=== PATIENT | male | born 1960 | race African-American/Black ===

== ENCOUNTER 2017-07-14 06:14 | Day surgery (SDC) | payer BC ==
[~2017-07-14] VITALS: Ht 165.1 cm; Wt 71.8 kg
[2017-07-14 06:37] VITALS: BP 124/102; PULSE 80; TEMP 97.6
[2017-07-14] MEDS ORDERED: ASPIRIN 32325 MG/TAB PO (06:41)
[2017-07-14] MEDS ORDERED: NATURAL IRON65 MG PO (06:42)
[2017-07-14] MEDS ORDERED: B COMPLEX & B121 TAB PO (06:42)
[2017-07-14] MEDS ORDERED: VTAMINC250TA PO (06:42)
[2017-07-14] MEDS ORDERED: LEADER GARLIC400 MG PO (06:43)
[2017-07-14] MEDS ORDERED: PRILOSEC 20MG20 MG PO (08:34)
[2017-07-14 08:40] VITALS: BP 123/83; PULSE 76; TEMP 97.7
[2017-07-14 08:45] VITALS: BP 108/78; PULSE 78
[2017-07-14 09:00] VITALS: BP 110/80; PULSE 71
[2017-07-14 09:15] VITALS: BP 111/75; PULSE 72
[2017-07-14 09:30] VITALS: BP 122/87; PULSE 79
== END 2017-07-14 09:50 | disposition home or self-care (01) ==
LOC: SDCO 06:14
DX: D12.2 Benign neoplasm of ascending colon (principal); D12.3 Benign neoplasm of transverse colon; D12.4 Benign neoplasm of descending colon; K57.30 Diverticulosis of large intestine without perforation or abscess without bleeding; K64.0 First degree hemorrhoids; D50.9 Iron deficiency anemia, unspecified; K22.2 Esophageal obstruction; K21.0 Gastro-esophageal reflux disease with esophagitis; K44.9 Diaphragmatic hernia without obstruction or gangrene
CPT/HCPCS: OP; J2250; J3010; J7030

== ENCOUNTER → 2017-07-16 | Outpatient (CLI) | payer BC ==
[~2017-07-16] MED LIST: ASPIRIN 32325 MG/TAB PO; B COMPLEX & B121 TAB PO; LEADER GARLIC400 MG PO; NATURAL IRON65 MG PO; PRILOSEC 20MG20 MG PO; VTAMINC250TA PO
== END ==
LOC: COL.RAD 08:13
DX: K76.89 Other specified diseases of liver (principal); K43.9 Ventral hernia without obstruction or gangrene
CPT/HCPCS: Q9967

== ENCOUNTER → 2017-07-23 | Outpatient (CLI) | payer BC ==
[2017-07-23] VITALS (9 sets, daily range): BP systolic 119–140; BP diastolic 70–90; PULSE 68–80
[~2017-07-23] VITALS: Ht 165.1 cm; Wt 72.1 kg
== END ==
LOC: COL.RAD 06:42
DX: R16.0 Hepatomegaly, not elsewhere classified (principal)

== ENCOUNTER → 2017-08-07 | Outpatient (CLI) | payer BC | LOC: COL.RAD 08-06 14:00 | DX: C22.9 Malignant neoplasm of liver, not specified as primary or secondary (principal); C78.01 Secondary malignant neoplasm of right lung; C78.02 Secondary malignant neoplasm of left lung | CPT/HCPCS: Q9967 ==